=== PATIENT | male | born 1940 | race Caucasian/White ===

== ENCOUNTER 2016-11-05 12:40 | Emergency (ER) | payer MEDICARE ==
[~2016-11-05] VITALS: Ht 177.8 cm; Wt 131.8 kg
[~2016-11-05 12:40] MED LIST: AMLO5TAB2 PO; ASPI-973 PO; AZIT250T4 PO; BENA40TA2 PO; BENZ-12 PO; CALCIUM+D PO; FLUTICASONE INH; INS7030 SUBQ; LIP40 PO; METF1000 PO; METO50TA3 PO; MULTI VITAMIN PO; OMEG1CAP99 PO; SAW PALMETTO PO
[2016-11-05 12:46] VITALS: BP 129/69; PULSE 79; RESP 16; O2SAT 94
[2016-11-05 13:23] LABS: BASOPHILS % (AUTO) 0.5 % (0-3); EOSINOPHILS % (AUTO) 2.3 % (0-5); MONOCYTES % (AUTO) 10.3 % (4-12); Mean Corpuscular Hemoglobin 29.5 pg (27.0-35.0); Mean Corpuscular Volume 90.2 fL (81-100); NEUTROPHILS % (AUTO) 73.7 % (40-74); Platelet Count 213 bil/L (150-400)
[2016-11-05 13:39] LABS: TROPONIN T < 0.010 ug/L (0.0-0.011)
--- NOTE | 2016-11-05 13:44 | DRSVH ---
PROCEDURE: X-RAY CHEST ONE VIEW, PORTABLE ([id number]) INDICATIONS: chest pain TECHNIQUE: One view of the chest was acquired. COMPARISON: [facility], CR, XR CHEST 2VW, 02/21/2016, 7:21. FINDINGS: Surgical changes and devices: None. Lungs and pleura: No pleural effusions or pneumothorax. Lungs are clear. Mediastinum: Mediastinal contours appear normal. Heart size is normal. Bones and chest wall: No suspicious bony lesions. Overlying soft tissues appear unremarkable. IMPRESSION: No acute disease. Scattered scarring/atelectasis Dictated by: Crow Bueno M.D. on 11/05/2016 at 13:41 Approved by: Crow Bueno M.D. on 11/05/2016 at 13:42
[2016-11-05 13:49] LABS: Magnesium 1.7 mg/dL (1.6-2.6)
[2016-11-05 15:38] VITALS: BP 147/56; PULSE 78; RESP 24; O2SAT 96
--- NOTE | 2016-11-05 15:50 | ED.REPORT ---
HPI-Chest Pain 40 and Over Date of Service Nov 05, 2016 ED Provider: Oren Kaplan MD Pt is a 76 y/o male w/ a hx of CAD s/p stents, HTN, DM, hyperlipidemia, presenting to the ED c/o left sternal pleuritic CP onset 2 days ago. His pain seems to be pleuritic but also persists mildly throughout the day. He states he has been experiencing chest pain with twisting or bending for the past 15 years which is somewhat similar to today. He remembers lifting a somewhat heavy box about 2 days prior to the onset of his pain. There was also somewhat similar pain in the past when he had pneumonia but that was more located in the back. There is no history of DVT or PE, or recent surgeries or long periods of immobilization. His pain is not exertional and he has never had an AK although there have been cardiac stents placed. He c/o associated yellow productive cough and congestion for 3 weeks. Pt denies SOB, fever, chills, extremity pain or swelling. The patient does not smoke Nursing Notes Stated Complaint: CHEST PAIN Chief Complaint: Chest Pain Nursing Notes Reviewed: Yes Allergies: Coded Allergies: No Known Allergies (Unverified , 11/05/16) Scheduled ([Calcium+D]) 600 MG PO DAILY 600-600 MG TABS ([Fluticasone]) 220 MCG INH HS ([Multi Vitamin]) MG PO HS ([Saw [place]]) 80 MG PO DAILY Amlodipine (Amlodipine) 5 Mg Tablet 5 MG PO HS Aspirin (Aspirin) 81 Mg Tablet 81 MG PO HS Atorvastatin (Lipitor) 40 Mg Tablet 40 MG PO HS Azithromycin (Zithromax (Z-Kolby)) 250 Mg Tablet 250 MG PO DIRECTED Take two tablets by mouth on day 1, then take one tablet daily on days 2 through 5. Benazepril (Benazepril) 40 Mg Tablet 40 MG PO DAILY Insulin Human Isophan/Regular (HUMulin 70/30 U100 Insulin Vial) 100 Unit/Ml Ml 20 UNIT SUBQ QAM Insulin Human Isophan/Regular (HUMulin 70/30 U100 Insulin Vial) 100 Unit/Ml Ml 65 UNIT SUBQ HS Metformin (Glucophage) 1,000 Mg Tablet 1,000 MG PO BID Metformin (Glucophage) 1,000 Mg Tablet 500 MG PO DAILYWL Metoprolol Tartrate (Metoprolol Tartrate) 50 Mg Tablet 50 MG PO BID [place]-3 Fatty Acids/Fish Oil (Fish Oil 1,200 mg Softgel) 1 Each Capsule 1 EACH PO HS Scheduled PRN Benzonatate (Tessalon Perle) 100 Mg Capsule 200 MG PO TID PRN PRN For Cough Ibuprofen (Ibuprofen) 800 Mg Tablet 800 MG PO TID PRN PRN For Pain General Time Seen by MD: 14:40 Chief Complaint Chest pain Hx Obtained From: Patient Arrived By: Walk-in Sudden in Onset?: No Onset Occurred: 2 days ago Symptom Duration: Waxes and wanes Location: : Substernal Quality: Painful, Pleuritic Radiation: : Does not radiate Severity: Current: Mild Severity: Maximum: Mild Similar Sx Previous: Yes Past Medical History Past Medical History 1. Atherosclerotic coronary disease. 2. Status post percutaneous intervention of the left anterior descending. 3. Hypertension. 4. Obesity. 5. Diabetes mellitus. 6. Hyperlipidemia. Past Surgical History Trigger finger Hernia repair Reports: Angioplasty Smoking History Former Smoker Social History Alcohol Use: 1-3 per week Ambulatory Status Independent Review of Systems Constitutional: Denies: Chills, Fever Respiratory: Reports: Pleuritic pain, Prod cough, yellow, Denies: Shortness of breath Cardiovascular: Reports: Chest pain GI: Denies: Abdominal pain, Nausea, Vomiting Complete sys rev & neg: except as marked. Physical Exam Initial Vital Signs Vital Signs (First) Date Time Temp Pulse Resp B/P Pulse Ox O2 Delivery O2 Flow Rate FiO2 11/05/16 12:46 36.7 79 16 129/69 94 Room Air Initial VS: Reviewed, Vital signs normal Head / Eyes: Atraumatic, Normocephalic, PERRL ENT: Mucous membranes moist, Conjunctiva normal, No scleral icterus Neck: Supple, Full range of motion Extremities: Vascular intact, Neuro intact Skin: Warm, Dry, No cyanosis Neurologic: Alert, Oriented, Nonfocal Psychiatric: Mood/affect normal, Behavior normal, Normal thought content General/Constitutional: Awake, Alert, No acute distress, Well appearing, Cooperative, Not toxic appearing Appearance / Presentation: Positive: Obese Respiratory / Chest: Atraumatic, Breath sounds NL, Breath sounds = bilat, No respiratory distress, No rales, No rhonchi, No wheezing, No retractions, No stridor, No chest wall deformity Reproducible left chest tenderness Cardiovascular: Heart rate NL, Regular rhythm, Heart sounds NL, No gallop, No murmurs, No rubs, Cap refill not delayed, Peripheral circulation NL Lower Ext Edema: Positive: Bilateral 2+ Abdomen: Atraumatic, Soft, Non-tender, No guarding, No rebound, No distention, No palpable mass Interpretation & Diagnostics Lab Results Interpretation Result Diagram: 11/05/16 1300 11/05/16 1300 Test 11/05/16 13:00 11/05/16 16:10 11/05/16 16:34 White Blood Count 10.9th/mm3 (3.8-10.1) Red Blood Count 4.51mil/mm3 (4.40-5.80) Hemoglobin 13.3g/dL (13.8-17.2) Hematocrit 40.7% (41.0-50.0) Mean Corpuscular Volume 90.2fL (81-100) Mean Corpuscular Hemoglobin 29.5pg (27.0-35.0) Mean Corpuscular Hemoglobin Concent 32.7% (32.0-37.0) Red Cell Distribution Width 13.9% (12.3-15.4) Platelet Count 213bil/L (150-400) Neutrophils (%) (Auto) 73.7% (40-74) Lymphocytes (%) (Auto) 13.0% (14-46) Monocytes (%) (Auto) 10.3% (4-12) Eosinophils (%) (Auto) 2.3% (0-5) Basophils (%) (Auto) 0.5% (0-3) D-Dimer < 0.50mg/L FEU (<0.50) Sodium Level 139mEq/L (134-144) Potassium Level 4.5mEq/L (3.5-5.2) Chloride Level 102mEq/L (97-108) Carbon Dioxide Level 22mmol/L (18-29) Blood Urea Nitrogen 16mg/dL (8-27) Creatinine 0.73mg/dL (0.76-1.27) Estimat Glomerular Filtration Rate 111mL/min (>59) Glucose Level 126mg/dL (60-99) Calcium Level 9.4mg/dL (8.5-10.1) Magnesium Level 1.7mg/dL (1.6-2.6) Total Bilirubin 0.2mg/dL (0.0-1.2) Aspartate Amino Transf (AST/SGOT) 21U/L (0-50) Alanine Aminotransferase (ALT/SGPT) 24U/L (0-44) Alkaline Phosphatase 81U/L (25-160) Total Protein 6.5g/dL (6.4-8.4) Albumin 3.8g/dL (3.4-5.0) Troponin T < 0.010ug/L (0.0-0.011) Hold Urine Received (Received) ECG Interpretation ECG Interpretation: Sinus rhythm rate 77 T wave inversions isolated in AvR, unchanged from prior Time: 15:54 Interpreted by: ED physician Normal ECG Interpretation: Normal rate, Normal sinus rhythm, No acute ischemic changes, Normal QRS, Normal axis, Normal intervals, Adequate tracing X-Ray Chest Interpretation Chest Xray Interpretation: IMPRESSION: No acute disease. Scattered scarring/atelectasis Dictated by: Crow Bueno M.D. on 11/05/2016 at 13:41 Approved by: Crow Bueno M.D. on 11/05/2016 at 13:42 View: Portable, 1 view Interpretation / Wet Read by: Interpret - Radiologist Re-Eval/Medical Decision Med Decision/Clinical Course 76-year-old male history of CAD presenting with left-sided chest pain pleuritic times several days. This was preceded by him heavy lifting. It is reproducible on exam. His d-dimer is negative. His EKG is normal. Troponins are negative 2. His pain resolved with Toradol. I discussed with the patient and he does not want to be admitted. It is most likely musculoskeletal. He does understand that this could be heart related but he does not want to be admitted here close to go home. He will follow-up with his primary doctor. Return precautions given. Time of Eval: 17:31 Re-Evaluation/Progress Note: Pt rechecked. Pain significantly decreased with Toradol. Discussed admit vs discharge. He would like to be discharged. Informed pt of plan for treatment. Pt understands and agrees with plan for treatment. F/U instructions and RTER warnings given. All questions addressed. Counseled Regarding: Diagnosis, Lab results, Need for follow-up, When/why to return to ED Discharge & Departure Primary Impression: Chest pain Chest pain type: unspecified Qualified Code: R07.9 - Chest pain, unspecified Disposition: Home Discharge Condition All VS Reviewed: Yes Condition: Stable Patient Instructions: Chest Pain (ED) Additional Instructions: The cause of your chest pain is uncertain at this time, but is I suspect your pain may be caused by a muscle strain. You have decided to go home. Labs including markers for heart damage and blood clot were normal, EKG and chest x-ray were also normal. There was no sign of pneumonia. Take Ibuprofen 800 mg every 8 hours as needed for pain. Return to the emergency department for increased chest pain, shortness of breath , profuse sweating, vomiting, high fever, lightheadedness or passing out, or for other concerning symptoms. Follow-up with your primary care provider later this week for a recheck and to discuss outpatient cardiac testing. Referrals: Lucita Ellis MD (PCP) Scribe Attestation Portions of this note were transcribed by Casimiro Chávez. I, Dr. Kaplan, personally performed the history, physical exam and medical decision-making; I reviewed and confirmed the accuracy of the information in the transcribed note. Signed by Paco Orozco, 11/05/16 - 1600 copies to: Lucita Ellis MD, Ben M MD Nov 05, 2016 15:50 CASIMIRO CHÁVEZ Nov 05, 2016 15:58
[2016-11-05] MEDS ORDERED: IBUP800T28 PO (17:35)
[2016-11-05 18:07] VITALS: BP 137/44; PULSE 70; RESP 22; O2SAT 95
== END 2016-11-05 18:13 | disposition home or self-care (01) ==
LOC: SED 12:40
DX: R07.2 Precordial pain (principal); R05 Cough; I11.9 Hypertensive heart disease without heart failure; I25.10 Atherosclerotic heart disease of native coronary artery without angina pectoris; E78.5 Hyperlipidemia, unspecified; E11.59 Type 2 diabetes mellitus with other circulatory complications; Z79.4 Long term (current) use of insulin; Z79.82 Long term (current) use of aspirin; Z79.84 Long term (current) use of oral hypoglycemic drugs; Z87.891 Personal history of nicotine dependence
CPT/HCPCS: 36415; 71010; 80053; 83735; 84484; 85025; 85378; 93005; 96374; 99285; G0463; J1885